=== PATIENT | male | born 1975 | race Hispanic/Latino ===

== ENCOUNTER 2023-01-10 10:28 | Inpatient (IN) | payer BC, OTHER ==
[2023-01-10] VITALS (13 sets, daily range): BP systolic 120–139; BP diastolic 68–88; PULSE 60–95; RESP 16–21; O2SAT 97–98
[~2023-01-10] VITALS: Ht 157.5 cm; Wt 66.1 kg
[~2023-01-10 10:28] MED LIST: ASPI-1197 PO; ATOR20TA65 PO; ATOR40TA71 PO; METO-391 PO; NITR0.4T SL; TICA90TA
[2023-01-10] MEDS ORDERED: LISI10TA24 PO (13:11)
[2023-01-10] MEDS ORDERED: METF-444 PO (13:11)
[2023-01-10] MEDS: NITROGLYCERIN 0.4 MG SL TAB SL PRN (13:40)
[2023-01-10 13:47] LABS: BASOPHILS # (AUTO) 0.03 K/uL (0.00-0.20); BASOPHILS % (AUTO) 0.4 % (0.0-5.0); EOSINOPHILS # (AUTO) 0.18 K/uL (0.00-0.70); EOSINOPHILS % (AUTO) 2.2 % (0.0-8.0); HEMATOCRIT 44.5 % (42-54); IMMATURE GRANULOCYTE ABSOLUTE 0.01 K/uL (0-1); LYMPHOCYTES # (AUTO) 2.2 K/uL (1.0-4.8); LYMPHOCYTES % (AUTO) 27.4 % (21.0-51.0); MEAN CORPUSCULAR HEMOGLOBIN 31.3 pg (27.0-33.0); MEAN CORPUSCULAR HGB CONC 34.4 g/dL (32.0-36.0); MONOCYTES # (AUTO) 0.5 K/uL (0.1-1.0); MONOCYTES % (AUTO) 6.6 % (3.0-13.0); NEUTROPHILS # (AUTO) 5.2 K/uL (1.8-7.7); NEUTROPHILS % (AUTO) 63.3 % (40.0-77.0); PLATELET COUNT (AUTO) 268 K/uL (130-400); RED BLOOD CELL COUNT(AUTO) 4.89 MIL/uL (4.50-6.20); RED CELL DISTRIBUTION WIDTH 11.8 % (11.0-15.5); WHITE BLOOD COUNT (AUTO) 8.1 K/uL (4.8-10.8)
[2023-01-10 14:00] LABS: HEMOGLOBIN A1C 9.8 % (4.0-6.0)
[2023-01-10] MEDS ORDERED: CLOPIDOGREL 75MG TAB PO ONE (14:00)
[2023-01-10] MEDS ORDERED: ASPIRIN 325MG TAB PO ONE (14:00)
[2023-01-10 14:12] LABS: INR 0.94 (0.85-1.15); PROTHROMBIN TIME 10.9 SEC (9.6-11.6)
[2023-01-10 14:14] LABS: PARTIAL THROMBOPLASTIN TIME 57.2 SEC (26.3-35.5)
[2023-01-10 14:16] LABS: ALBUMIN 3.3 g/dL (3.5-5.0); BILIRUBIN,TOTAL 0.6 mg/dL (0.2-1.0); CREATININE 0.9 mg/dL (0.5-1.5); POTASSIUM 3.8 mmol/L (3.5-5.1); THYROID STIMULATING HORMONE 2.22 uIU/mL (0.36-3.74); TOTAL PROTEIN, SERUM 6.4 g/dL (6.0-8.3)
[2023-01-10] MEDS: INSULIN HUMULIN R 100 UNIT/ML 3ML SQ SCH ×2 (16:30→21:00)
[2023-01-10] MEDS ORDERED: MIDAZOLAM HCL 1 MG/ML 2ML VIAL ONE ×2 (16:58→18:15)
[2023-01-10] MEDS ORDERED: LIDOCAINE HCL 400MG/20ML VIAL ONE (16:58)
[2023-01-10] MEDS ORDERED: FENTANYL CITRATE PF 50 MCG/1 ML 2ML VIAL ONE (16:58)
[2023-01-10] MEDS ORDERED: HEPARIN 1,000 UNIT VIAL ONE (16:58)
[2023-01-10] MEDS ORDERED: IOHEXOL 350 MG/ML 100ML INFUS..BTL IV ONE (16:59)
[2023-01-10] MEDS ORDERED: IOHEXOL-350 50ML VIAL IV ONE ×2 (16:59→18:28)
[2023-01-10] MEDS ORDERED: BIVALIRUDIN 250 MG/VIAL IV ONE (18:07)
[2023-01-10] MEDS ORDERED: 0.9%NACL 1000ML 1,000 ML IV SCH (19:00)
[2023-01-10] MEDS: FAMOTIDINE 20MG TAB PO SCH (22:54)
[2023-01-10] MEDS ORDERED: ONDANSETRON 4MG INJ IV PRN (23:30)
[2023-01-10] MEDS ORDERED: MORPHINE 2 MG SYG IV PRN (23:30)
[2023-01-10] MEDS ORDERED: ACETAMINOPHEN 325 MG TAB PO PRN (23:30)
[2023-01-10] MEDS: ACETAMINOPHEN 325 MG TAB PO PRN (23:58)
[2023-01-11] VITALS (11 sets, daily range): BP systolic 113–132; BP diastolic 75–89; PULSE 54–78; RESP 14–20; O2SAT 98–99
[2023-01-11 04:08] LABS: BASOPHILS # (AUTO) 0.02 K/uL (0.00-0.20); BASOPHILS % (AUTO) 0.3 % (0.0-5.0); EOSINOPHILS % (AUTO) 1.4 % (0.0-8.0); HEMATOCRIT 44.4 % (42-54); IMMATURE GRANULOCYTE ABSOLUTE 0.02 K/uL (0-1); LYMPHOCYTES # (AUTO) 2.3 K/uL (1.0-4.8); LYMPHOCYTES % (AUTO) 32.5 % (21.0-51.0); MEAN CORPUSCULAR HEMOGLOBIN 31.1 pg (27.0-33.0); MEAN CORPUSCULAR HGB CONC 33.6 g/dL (32.0-36.0); MEAN CORPUSCULAR VOLUME 92.7 fL (79-99); MONOCYTES # (AUTO) 0.6 K/uL (0.1-1.0); MONOCYTES % (AUTO) 8.1 % (3.0-13.0); NEUTROPHILS # (AUTO) 4.1 K/uL (1.8-7.7); NEUTROPHILS % (AUTO) 57.4 % (40.0-77.0); PLATELET COUNT (AUTO) 253 K/uL (130-400); RED BLOOD CELL COUNT(AUTO) 4.79 MIL/uL (4.50-6.20); RED CELL DISTRIBUTION WIDTH 11.7 % (11.0-15.5); WHITE BLOOD COUNT (AUTO) 7.2 K/uL (4.8-10.8)
[2023-01-11 04:20] LABS: ALBUMIN 3.2 g/dL (3.5-5.0); BILIRUBIN,TOTAL 0.7 mg/dL (0.2-1.0); POTASSIUM 3.7 mmol/L (3.5-5.1); TOTAL PROTEIN, SERUM 6.4 g/dL (6.0-8.3)
[2023-01-11 04:35] LABS: ABG BASE EXCESS -0.2 mmol/L (-2.0-3.0); ABG HCO3 24.8 mmol/L (21.0-28.0); ABG OXYGEN SATURATION 92.7 % (95.0-99.0); ABG PCO2 42 mmHg (35-48); ABG PH 7.392 (7.35-7.450); PO2, ARTERIAL BG 65.2 mmHg (83.0-108.0); VENT MODE, BG ROOMAIR (ROOM AIR)
[2023-01-11] MEDS ORDERED: POTASSIUM CHLORIDE 10% ELIXIR 20 MEQ/15 ML UDCUP PO PRN (06:00)
[2023-01-11] MEDS ORDERED: POTASSIUM CHLORIDE 20MEQ/100ML 100 ML IV PRN (06:00)
[2023-01-11] MEDS: KCL 20 MEQ ERTAB PO PRN ×2 (06:13→09:46)
[2023-01-11] MEDS: INSULIN HUMULIN R 100 UNIT/ML 3ML SQ SCH ×4 (06:14→21:20)
[2023-01-11 06:40] LABS: INR 0.95 (0.85-1.15); PROTHROMBIN TIME 11.1 SEC (9.6-11.6)
[2023-01-11 06:41] LABS: PARTIAL THROMBOPLASTIN TIME 28.5 SEC (26.3-35.5)
[2023-01-11] MEDS: ASPIRIN 81MG CHEW TAB PO SCH (09:03)
[2023-01-11] MEDS: LISINOPRIL 2.5 MG TABLET PO SCH (09:03)
[2023-01-11] MEDS: FAMOTIDINE 20MG TAB PO SCH ×2 (09:03→21:15)
[2023-01-11] MEDS: MAGNESIUM 2GM PREMIX 50ML 50 ML IV SCH (09:04)
[2023-01-11] MEDS: NITROGLYCERIN 1GM OINT 1 INCH/1GM TD SCH ×3 (09:04→21:16)
[2023-01-11] MEDS: METOPROLOL TARTRATE 25 MG TAB PO SCH ×3 (09:45→21:15)
[2023-01-11 11:45] LABS: HEMOGLOBIN A1C 9.8 % (4.0-6.0)
[2023-01-11 11:51] LABS: CHOLESTEROL 174 mg/dL (<200); HDL CHOLESTEROL 44 mg/dL (29-71); LDL DIRECT 117 mg/dL (0-99); TRIGLYCERIDES 80 mg/dL (30-200)
[2023-01-11] MEDS: NITROGLYCERIN 0.4 MG SL TAB SL PRN ×2 (14:11→14:19)
[2023-01-11] MEDS ORDERED: METOPROLOL TARTRATE 25 MG TAB PO ONE (15:00)
[2023-01-11] MEDS ORDERED: HEPARIN 5,000 UNIT VIAL SQ STA (15:04)
[2023-01-11] MEDS ORDERED: HEPARIN 5,000 UNIT VIAL IV PRN (15:30)
[2023-01-11] MEDS: HEPARIN 25,000 UNITS/250ML D5W 250 ML IV SCH ×2 (15:49→21:30)
[2023-01-11] MEDS: INSULIN GLARGINE 100 UNITS/ML 10 ML VIAL SQ SCH (21:20)
[2023-01-12] VITALS (8 sets, daily range): BP systolic 106–125; BP diastolic 70–82; PULSE 56–64; RESP 18–20; O2SAT 96–100
[2023-01-12] MEDS: HEPARIN 25,000 UNITS/250ML D5W 250 ML IV SCH ×4 (03:30→21:30)
[2023-01-12 04:22] LABS: BASOPHILS # (AUTO) 0.03 K/uL (0.00-0.20); BASOPHILS % (AUTO) 0.4 % (0.0-5.0); EOSINOPHILS # (AUTO) 0.18 K/uL (0.00-0.70); EOSINOPHILS % (AUTO) 2.2 % (0.0-8.0); HEMATOCRIT 42.2 % (42-54); IMMATURE GRANULOCYTE ABSOLUTE 0.04 K/uL (0-1); LYMPHOCYTES # (AUTO) 2.7 K/uL (1.0-4.8); LYMPHOCYTES % (AUTO) 33.1 % (21.0-51.0); MEAN CORPUSCULAR HEMOGLOBIN 31.1 pg (27.0-33.0); MEAN CORPUSCULAR HGB CONC 33.2 g/dL (32.0-36.0); MEAN CORPUSCULAR VOLUME 93.8 fL (79-99); MONOCYTES # (AUTO) 0.7 K/uL (0.1-1.0); MONOCYTES % (AUTO) 8.4 % (3.0-13.0); NEUTROPHILS # (AUTO) 4.6 K/uL (1.8-7.7); NEUTROPHILS % (AUTO) 55.4 % (40.0-77.0); PLATELET COUNT (AUTO) 249 K/uL (130-400); RED CELL DISTRIBUTION WIDTH 11.7 % (11.0-15.5); WHITE BLOOD COUNT (AUTO) 8.3 K/uL (4.8-10.8)
[2023-01-12 04:46] LABS: BILIRUBIN,TOTAL 0.5 mg/dL (0.2-1.0); POTASSIUM 3.6 mmol/L (3.5-5.1); TOTAL PROTEIN, SERUM 5.9 g/dL (6.0-8.3)
[2023-01-12] MEDS: KCL 20 MEQ ERTAB PO PRN ×2 (05:58→10:12)
[2023-01-12] MEDS: INSULIN HUMULIN R 100 UNIT/ML 3ML SQ SCH ×4 (05:59→20:24)
[2023-01-12] MEDS: FAMOTIDINE 20MG TAB PO SCH ×2 (08:27→20:15)
[2023-01-12] MEDS: LISINOPRIL 2.5 MG TABLET PO SCH (08:27)
[2023-01-12] MEDS: ATORVASTATIN 40 MG TABLET PO SCH (08:28)
[2023-01-12] MEDS: ASPIRIN 81MG CHEW TAB PO SCH (08:28)
[2023-01-12] MEDS: METOPROLOL TARTRATE 25 MG TAB PO SCH ×3 (08:29→20:15)
[2023-01-12] MEDS: NITROGLYCERIN 1GM OINT 1 INCH/1GM TD SCH ×3 (08:30→20:35)
[2023-01-12] MEDS: INSULIN GLARGINE 100 UNITS/ML 10 ML VIAL SQ SCH (20:34)
[2023-01-13] VITALS (7 sets, daily range): BP systolic 102–130; BP diastolic 60–94; PULSE 48–66; RESP 16–18; O2SAT 98–99
[2023-01-13] MEDS: HEPARIN 25,000 UNITS/250ML D5W 250 ML IV SCH ×3 (03:30→22:00)
[2023-01-13] MEDS: INSULIN HUMULIN R 100 UNIT/ML 3ML SQ SCH ×4 (06:09→21:00)
[2023-01-13 09:00] LABS: BASOPHILS # (AUTO) 0.02 K/uL (0.00-0.20); BASOPHILS % (AUTO) 0.2 % (0.0-5.0); EOSINOPHILS # (AUTO) 0.11 K/uL (0.00-0.70); EOSINOPHILS % (AUTO) 1.3 % (0.0-8.0); HEMATOCRIT 44.3 % (42-54); IMMATURE GRANULOCYTE ABSOLUTE 0.03 K/uL (0-1); LYMPHOCYTES # (AUTO) 1.8 K/uL (1.0-4.8); MEAN CORPUSCULAR HEMOGLOBIN 31.2 pg (27.0-33.0); MEAN CORPUSCULAR HGB CONC 33.6 g/dL (32.0-36.0); MEAN CORPUSCULAR VOLUME 92.9 fL (79-99); MONOCYTES # (AUTO) 0.7 K/uL (0.1-1.0); MONOCYTES % (AUTO) 7.9 % (3.0-13.0); NEUTROPHILS # (AUTO) 5.7 K/uL (1.8-7.7); NEUTROPHILS % (AUTO) 68.2 % (40.0-77.0); PLATELET COUNT (AUTO) 269 K/uL (130-400); RED BLOOD CELL COUNT(AUTO) 4.77 MIL/uL (4.50-6.20); RED CELL DISTRIBUTION WIDTH 11.9 % (11.0-15.5); WHITE BLOOD COUNT (AUTO) 8.3 K/uL (4.8-10.8)
[2023-01-13 09:19] LABS: MAGNESIUM 1.8 mg/dL (1.80-2.40); POTASSIUM 3.7 mmol/L (3.5-5.1)
[2023-01-13] MEDS: ATORVASTATIN 40 MG TABLET PO SCH (09:34)
[2023-01-13] MEDS: LISINOPRIL 2.5 MG TABLET PO SCH (09:35)
[2023-01-13] MEDS: FAMOTIDINE 20MG TAB PO SCH ×2 (09:35→21:57)
[2023-01-13] MEDS: METOPROLOL TARTRATE 25 MG TAB PO SCH ×2 (09:35→22:01)
[2023-01-13] MEDS: ASPIRIN 81MG CHEW TAB PO SCH (09:35)
[2023-01-13] MEDS: NITROGLYCERIN 1GM OINT 1 INCH/1GM TD SCH ×3 (09:36→22:07)
[2023-01-13] MEDS: CEFAZOLIN SODIUM 2 GM VIAL IVPB SCH (10:00)
[2023-01-13] MEDS: MAGNESIUM 2GM PREMIX 50ML 50 ML IV SCH (12:58)
[2023-01-13] MEDS: KCL 20 MEQ ERTAB PO PRN ×2 (17:23→19:29)
[2023-01-13] MEDS: INSULIN GLARGINE 100 UNITS/ML 10 ML VIAL SQ SCH (21:58)
[2023-01-14] VITALS (43 sets, daily range): BP systolic 100–153; BP diastolic 56–96; PULSE 45–106; RESP 10–22; TEMP 97.1–100.3; O2SAT 95–100
[2023-01-14] MEDS: HEPARIN 25,000 UNITS/250ML D5W 250 ML IV SCH ×2 (03:28→09:30)
[2023-01-14 04:04] LABS: HEMATOCRIT 44.6 % (42-54); MEAN CORPUSCULAR HEMOGLOBIN 31.3 pg (27.0-33.0); MEAN CORPUSCULAR HGB CONC 33.9 g/dL (32.0-36.0); MEAN CORPUSCULAR VOLUME 92.5 fL (79-99); RED BLOOD CELL COUNT(AUTO) 4.82 MIL/uL (4.50-6.20); RED CELL DISTRIBUTION WIDTH 11.9 % (11.0-15.5); WHITE BLOOD COUNT (AUTO) 8.5 K/uL (4.8-10.8)
[2023-01-14 04:06] LABS: CREATININE 1.1 mg/dL (0.5-1.5); POTASSIUM 4.1 mmol/L (3.5-5.1)
[2023-01-14 04:16] LABS: ALBUMIN 3.3 g/dL (3.5-5.0); BILIRUBIN,TOTAL 0.5 mg/dL (0.2-1.0); TOTAL PROTEIN, SERUM 6.6 g/dL (6.0-8.3)
[2023-01-14 04:19] LABS: INR 0.94 (0.85-1.15)
[2023-01-14 04:21] LABS: PARTIAL THROMBOPLASTIN TIME 66.6 SEC (26.3-35.5)
[2023-01-14] MEDS: INSULIN HUMULIN R 100 UNIT/ML 3ML SQ SCH ×2 (06:40→11:30)
[2023-01-14] MEDS: METOPROLOL TARTRATE 25 MG TAB PO SCH (08:24)
[2023-01-14] MEDS: ATORVASTATIN 40 MG TABLET PO SCH (08:25)
[2023-01-14] MEDS: FAMOTIDINE 20MG TAB PO SCH (08:25)
[2023-01-14] MEDS: NITROGLYCERIN 1GM OINT 1 INCH/1GM TD SCH (09:00)
[2023-01-14] MEDS: ASPIRIN 81MG CHEW TAB PO SCH (09:00)
[2023-01-14] MEDS: LISINOPRIL 2.5 MG TABLET PO SCH (09:00)
[2023-01-14] MEDS ORDERED: NOREPINEPHRINE BITARTRATE 8 MG in DEXTROSE 5%-WATER 250 ML IV PRN ×2 (09:30→12:30)
[2023-01-14] MEDS ORDERED: EPINEPHRINE PF 1MG (1:1,000) 10 MG in 0.9% NACL 250ML 240 ML IV PRN ×2 (09:30→12:30)
[2023-01-14] MEDS ORDERED: AMINOCAPROIC ACID 5,000MG VIAL 15,000 MG in 0.9% NACL 500ML IV.SOLN 420 ML IV PRN (09:30)
[2023-01-14] MEDS: MAGNESIUM 2GM PREMIX 50ML 50 ML IV SCH (10:02)
[2023-01-14] MEDS ORDERED: CEFAZOLIN SODIUM 1 GM VIAL ONE (10:51)
[2023-01-14] MEDS ORDERED: PAPAVERINE HCL 30 MG/ML 2ML VIAL ONE (10:51)
[2023-01-14] MEDS ORDERED: NITROGLYCERIN 50MG/D5W 250ML 1 BOT ONE (11:04)
[2023-01-14] MEDS ORDERED: SODIUM BICARB 50MEQ 50ML VIAL 150 ML ONE ×2 (11:29→19:31)
[2023-01-14] MEDS ORDERED: AMINOCAPROIC ACID 5,000MG VIAL ONE (11:29)
[2023-01-14] MEDS ORDERED: ESMOLOL HCL 10 MG/ML 10 ML VIAL ONE (11:29)
[2023-01-14] MEDS ORDERED: HEPARIN 10,000 UNIT/10ML (1,000 UNIT/ML) VIAL ONE ×2 (11:29→15:50)
[2023-01-14] MEDS ORDERED: PROTAMINE SULFATE 10 MG/ML 25ML VIAL IV ONE (11:29)
[2023-01-14] MEDS ORDERED: LIDOCAINE PF 100MG/5ML (2%) SYRINGE 5ML ONE (11:29)
[2023-01-14] MEDS ORDERED: NOREPINEPHRINE BITARTRATE 1 MG/1 ML ML IV ONE (11:29)
[2023-01-14] MEDS ORDERED: EPINEPHRINE PF 1MG (1:1,000) 1 MG/ML AMP ONE (11:29)
[2023-01-14] MEDS ORDERED: PROPOFOL 10 MG/ML 20ML VIAL IV ONE (11:30)
[2023-01-14] MEDS ORDERED: FENTANYL CITRATE PF 50 MCG/1 ML 20ML VIAL IJ ONE (11:30)
[2023-01-14] MEDS ORDERED: ROCURONIUM 10MG/1ML SYR 10 MG/ML ML ONE (11:30)
[2023-01-14] MEDS ORDERED: MIDAZOLAM HCL 1 MG/ML 2ML VIAL ONE (11:30)
[2023-01-14] MEDS ORDERED: KETAMINE 50MG/ML SYRINGE 50 MG/ML DISP.SYRIN ONE ×2 (11:31→14:35)
[2023-01-14] MEDS: CEFAZOLIN SODIUM 2 GM VIAL IVPB SCH ×2 (12:00→17:43)
[2023-01-14] MEDS ORDERED: MAGNESIUM HYDROXIDE 30 ML/UDCUP PO PRN (12:00)
[2023-01-14] MEDS ORDERED: LACTULOSE 20 GM/30 ML UDCUP PO PRN (12:00)
[2023-01-14] MEDS ORDERED: 0.9% NACL 500ML IV.SOLN 500 ML IV SCH (12:30)
[2023-01-14] MEDS ORDERED: AMINOCAPROIC ACID 5,000MG VIAL 15,000 MG in 0.9% NACL 250ML 250 ML IV SCH (12:30)
[2023-01-14] MEDS ORDERED: PROPOFOL 1000 MG/100 ML 100 ML IV PRN (12:30)
[2023-01-14] MEDS ORDERED: ACETAMINOPHEN 325 MG TAB PO PRN (12:30)
[2023-01-14] MEDS ORDERED: 0.9%NACL 1000ML 1,000 ML IV SCH (12:30)
[2023-01-14] MEDS ORDERED: MORPHINE 2 MG SYG IV PRN (12:30)
[2023-01-14] MEDS ORDERED: DEXTROSE 50%-WATER 50 ML DISP.SYRIN IV PRN (12:30)
[2023-01-14] MEDS ORDERED: ALBUMIN (HUMAN) 5% 250 ML IV PRN (12:30)
[2023-01-14] MEDS ORDERED: ACETAMINOPHEN 650 MG SUPPOSITORY RC PRN (12:30)
[2023-01-14] MEDS ORDERED: GLUCAGON 1MG KIT 1 MG ML IM PRN (12:30)
[2023-01-14] MEDS ORDERED: 0.9%NACL 10ML VIAL IVP PRN (12:30)
[2023-01-14] MEDS ORDERED: ONDANSETRON 4MG INJ IV PRN (12:30)
[2023-01-14] MEDS ORDERED: POTASSIUM PHOS 15 mMOL+NS250ML 250 ML IV PRN (12:30)
[2023-01-14] MEDS ORDERED: NITROGLYCERIN 50MG/D5W 250ML 250 BOT IV SCH (12:30)
[2023-01-14] MEDS ORDERED: GLYCOPYRROLATE 1 MG/5 ML SYRINGE ONE (12:37)
[2023-01-14 12:38] LABS: ABG BASE EXCESS -3.2 mmol/L (-2.0-3.0); ABG HCO3 20.4 mmol/L (21.0-28.0); ABG OXYGEN SATURATION 99.5 % (95.0-99.0); ABG PCO2 33 mmHg (35-48); CARBON MONOXIDE 0.8; DEVICE COMMENT 1; HHb 0.5; PO2, ARTERIAL BG 326.6 mmHg (83.0-108.0)
[2023-01-14] MEDS ORDERED: PROTAMINE SULFATE 10 MG/ML 5 ML VIAL ONE ×2 (14:53→15:16)
[2023-01-14] MEDS ORDERED: ASPIRIN 81MG CHEW TAB NG ONE (15:00)
[2023-01-14 15:15] LABS: ABG HCO3 21.3 mmol/L (21.0-28.0); ABG PCO2 40 mmHg (35-48); ABG PH 7.343 (7.35-7.450); CARBON MONOXIDE 0.7; DEVICE COMMENT 3; PO2, ARTERIAL BG 205.8 mmHg (83.0-108.0)
[2023-01-14 15:53] LABS: ABG BASE EXCESS -1.2 mmol/L (-2.0-3.0); ABG HCO3 23.4 mmol/L (21.0-28.0); ABG OXYGEN SATURATION 99.2 % (95.0-99.0); ABG PCO2 39 mmHg (35-48); ABG PH 7.398 (7.35-7.450); CARBON MONOXIDE 0.8; HHb 0.8; PO2, ARTERIAL BG 305.3 mmHg (83.0-108.0); VENT MODE, BG SIMV PS 10 (ROOM AIR)
[2023-01-14 16:06] LABS: HEMATOCRIT 39.9 % (42-54); MEAN CORPUSCULAR HEMOGLOBIN 31.6 pg (27.0-33.0); MEAN CORPUSCULAR HGB CONC 34.6 g/dL (32.0-36.0); MEAN CORPUSCULAR VOLUME 91.3 fL (79-99); RED BLOOD CELL COUNT(AUTO) 4.37 MIL/uL (4.50-6.20); RED CELL DISTRIBUTION WIDTH 11.9 % (11.0-15.5); WHITE BLOOD COUNT (AUTO) 23.9 K/uL (4.8-10.8)
[2023-01-14] MEDS: SODIUM BICARB 50MEQ 50ML VIAL IV PRN ×5 (16:17→23:21)
[2023-01-14] MEDS: INSULIN REGULAR, HUMAN 3ML 100 UNIT in 0.9%NACL 100ML 99 ML IV SCH ×2 (16:21)
[2023-01-14 16:22] LABS: INR 1.08 (0.85-1.15); PROTHROMBIN TIME 12.5 SEC (9.6-11.6)
[2023-01-14] MEDS: TRAMADOL HCL 50 MG TABLET PO PRN (16:23)
[2023-01-14 16:26] LABS: CREATININE 0.9 mg/dL (0.5-1.5); MAGNESIUM 1.6 mg/dL (1.80-2.40); PHOSPHORUS 4.9 mg/dL (2.5-4.9); POTASSIUM 4.1 mmol/L (3.5-5.1)
[2023-01-14] MEDS: MORPHINE 2 MG SYG IV PRN ×2 (16:32→18:39)
[2023-01-14] MEDS: MAGNESIUM 2GM PREMIX 50ML 50 ML IV PRN (16:47)
[2023-01-14 17:00] LABS: ABG BASE EXCESS -4.5 mmol/L (-2.0-3.0); ABG OXYGEN SATURATION 98.9 % (95.0-99.0); ABG PCO2 40 mmHg (35-48); ABG PH 7.337 (7.35-7.450); HHb 1.1; PO2, ARTERIAL BG 174.1 mmHg (83.0-108.0); VENT MODE, BG SIMV PS 10 (ROOM AIR)
[2023-01-14 17:03] LABS: ABG OXYGEN SATURATION 70.4 % (95.0-99.0); BASE EXCESS,VENOUS BLOOD GAS -4.2 (-2.0-3.0); HCO3,VENOUS BLOOD GAS 22.4 (21.0-28.0); PCO2,VENOUS BLOOD GAS 46 (32-45); PH,VENOUS BLOOD GAS 7.302 (7.350-7.450); PO2,VENOUS BLOOD GAS 40.6 mmHg (35.0-45.0); VENT MODE, BG SIMV PSN10 (ROOM AIR)
[2023-01-14] MEDS: POTASSIUM CHLORIDE 20MEQ/100ML 100 ML IV PRN ×5 (17:43→23:20)
[2023-01-14 18:21] LABS: ABG BASE EXCESS 0.6 mmol/L (-2.0-3.0); ABG HCO3 25.3 mmol/L (21.0-28.0); ABG OXYGEN SATURATION 97.3 % (95.0-99.0); ABG PCO2 41 mmHg (35-48); CARBON MONOXIDE 1.2; HHb 2.7; PO2, ARTERIAL BG 95.7 mmHg (83.0-108.0)
[2023-01-14] MEDS: CALCIUM GLUC 1GM 1 GM in 0.9%NACL 50ML 50 ML IV PRN ×4 (18:22→21:27)
[2023-01-14 19:22] LABS: ABG BASE EXCESS -4.2 mmol/L (-2.0-3.0); ABG HCO3 20.7 mmol/L (21.0-28.0); ABG PCO2 37 mmHg (35-48); CARBON MONOXIDE 1.1; PO2, ARTERIAL BG 116.7 mmHg (83.0-108.0); VENT MODE, BG SIMV,PS10 (ROOM AIR)
[2023-01-14 20:19] LABS: ABG BASE EXCESS 0.9 mmol/L (-2.0-3.0); ABG HCO3 25.5 mmol/L (21.0-28.0); ABG OXYGEN SATURATION 96.2 % (95.0-99.0); ABG PCO2 41 mmHg (35-48); ABG PH 7.417 (7.35-7.450); CARBON MONOXIDE 0.9; HHb 3.8; PO2, ARTERIAL BG 82.8 mmHg (83.0-108.0); VENT MODE, BG SIMV,PS10 (ROOM AIR)
[2023-01-14 21:13] LABS: ABG BASE EXCESS 0.6 mmol/L (-2.0-3.0); ABG HCO3 25.2 mmol/L (21.0-28.0); ABG PCO2 40 mmHg (35-48); ABG PH 7.413 (7.35-7.450); CARBON MONOXIDE 1.4; HHb 3.9; PO2, ARTERIAL BG 78.5 mmHg (83.0-108.0); VENT MODE, BG SIMV (ROOM AIR)
[2023-01-14] MEDS ORDERED: CALCIUM GLUC 1GM/10ML VIAL ONE (21:21)
[2023-01-14] MEDS: FAMOTIDINE 20MG VIAL IV SCH (21:26)
[2023-01-14] MEDS: DOCUSATE SODIUM 100 MG CAP PO SCH (21:26)
[2023-01-14 22:16] LABS: ABG BASE EXCESS -0.5 mmol/L (-2.0-3.0); ABG HCO3 24.1 mmol/L (21.0-28.0); ABG OXYGEN SATURATION 95.9 % (95.0-99.0); ABG PCO2 40 mmHg (35-48); ABG PH 7.403 (7.35-7.450); CARBON MONOXIDE 0.9; PO2, ARTERIAL BG 82.1 mmHg (83.0-108.0); VENT MODE, BG SIMV (ROOM AIR)
[2023-01-14 23:14] LABS: ABG HCO3 22.1 mmol/L (21.0-28.0); ABG OXYGEN SATURATION 93.7 % (95.0-99.0); ABG PCO2 36 mmHg (35-48); ABG PH 7.407 (7.35-7.450); HHb 6.2; PO2, ARTERIAL BG 69.3 mmHg (83.0-108.0); VENT MODE, BG SIMV,PS10 (ROOM AIR)
[2023-01-15] VITALS (77 sets, daily range): BP systolic 111–163; BP diastolic 58–107; PULSE 82–107; RESP 10–47; TEMP 99.5–100.3; O2SAT 94–99
[2023-01-15 00:29] LABS: ABG BASE EXCESS 1.7 mmol/L (-2.0-3.0); ABG HCO3 25.5 mmol/L (21.0-28.0); ABG OXYGEN SATURATION 94.8 % (95.0-99.0); ABG PCO2 38 mmHg (35-48); CARBON MONOXIDE 0.9; HHb 5.1; PO2, ARTERIAL BG 71.1 mmHg (83.0-108.0); VENT MODE, BG SIMV (ROOM AIR)
[2023-01-15] MEDS ORDERED: CALCIUM GLUC 1GM/10ML VIAL ONE (00:33)
[2023-01-15] MEDS: POTASSIUM CHLORIDE 20MEQ/100ML 100 ML IV PRN ×4 (00:34→13:50)
[2023-01-15] MEDS: CALCIUM GLUC 1GM 1 GM in 0.9%NACL 50ML 50 ML IV PRN ×2 (00:35→13:55)
[2023-01-15] MEDS: CEFAZOLIN SODIUM 2 GM VIAL IVPB SCH ×2 (00:58→09:01)
[2023-01-15 01:18] LABS: ABG BASE EXCESS 0.1 mmol/L (-2.0-3.0); ABG OXYGEN SATURATION 94.4 % (95.0-99.0); ABG PCO2 37 mmHg (35-48); ABG PH 7.433 (7.35-7.450); CARBON MONOXIDE 0.6; HHb 5.5; PO2, ARTERIAL BG 70.6 mmHg (83.0-108.0); VENT MODE, BG SIMV,PS10 (ROOM AIR)
[2023-01-15 02:20] LABS: ABG BASE EXCESS -1.3 mmol/L (-2.0-3.0); ABG OXYGEN SATURATION 92.9 % (95.0-99.0); ABG PCO2 38 mmHg (35-48); ABG PH 7.403 (7.35-7.450); CARBON MONOXIDE 0.7; PO2, ARTERIAL BG 66.5 mmHg (83.0-108.0)
[2023-01-15 03:42] LABS: ABG BASE EXCESS 3.2 mmol/L (-2.0-3.0); ABG HCO3 27.9 mmol/L (21.0-28.0); ABG OXYGEN SATURATION 93.2 % (95.0-99.0); ABG PCO2 43 mmHg (35-48); ABG PH 7.431 (7.35-7.450); CARBON MONOXIDE 0.9; HHb 6.7; PO2, ARTERIAL BG 64.7 mmHg (83.0-108.0)
[2023-01-15 04:52] LABS: ABG BASE EXCESS 3.3 mmol/L (-2.0-3.0); ABG HCO3 27.8 mmol/L (21.0-28.0); ABG PCO2 42 mmHg (35-48); CARBON MONOXIDE 0.7; PO2, ARTERIAL BG 72.2 mmHg (83.0-108.0)
[2023-01-15 05:22] LABS: HEMATOCRIT 38.4 % (42-54); MEAN CORPUSCULAR HEMOGLOBIN 31.4 pg (27.0-33.0); MEAN CORPUSCULAR HGB CONC 34.1 g/dL (32.0-36.0); MEAN CORPUSCULAR VOLUME 92.1 fL (79-99); RED BLOOD CELL COUNT(AUTO) 4.17 MIL/uL (4.50-6.20); RED CELL DISTRIBUTION WIDTH 12.3 % (11.0-15.5); WHITE BLOOD COUNT (AUTO) 16.6 K/uL (4.8-10.8)
[2023-01-15 05:35] LABS: INR 1.05 (0.85-1.15); PROTHROMBIN TIME 12.1 SEC (9.6-11.6)
[2023-01-15 05:36] LABS: PARTIAL THROMBOPLASTIN TIME 29.6 SEC (26.3-35.5)
[2023-01-15 05:37] LABS: MAGNESIUM 1.4 mg/dL (1.80-2.40); PHOSPHORUS 2.8 mg/dL (2.5-4.9); POTASSIUM 3.5 mmol/L (3.5-5.1)
[2023-01-15] MEDS: MAGNESIUM 2GM PREMIX 50ML 50 ML IV PRN (06:32)
[2023-01-15] MEDS ORDERED: FUROSEMIDE 20MG VIAL ONE (06:49)
[2023-01-15] MEDS: FUROSEMIDE 20MG VIAL IV SCH ×2 (06:50→20:23)
[2023-01-15 07:33] LABS: ABG BASE EXCESS 3.1 mmol/L (-2.0-3.0); ABG HCO3 27.4 mmol/L (21.0-28.0); ABG OXYGEN SATURATION 96.5 % (95.0-99.0); ABG PCO2 41 mmHg (35-48); ABG PH 7.447 (7.35-7.450); CARBON MONOXIDE 1.2; HHb 3.4; PO2, ARTERIAL BG 79.3 mmHg (83.0-108.0); VENT MODE, BG BIPAP 12-6 (ROOM AIR)
[2023-01-15] MEDS: DOCUSATE SODIUM 100 MG CAP PO SCH ×2 (08:16→20:23)
[2023-01-15] MEDS: ATORVASTATIN 40 MG TABLET PO SCH (08:17)
[2023-01-15] MEDS: FAMOTIDINE 20MG VIAL IV SCH ×2 (08:17→20:23)
[2023-01-15] MEDS: ASPIRIN 81MG CHEW TAB PO SCH (08:17)
[2023-01-15] MEDS: INSULIN REGULAR, HUMAN 3ML 100 UNIT in 0.9%NACL 100ML 99 ML IV SCH ×2 (08:18)
[2023-01-15 11:58] LABS: ABG BASE EXCESS 4.8 mmol/L (-2.0-3.0); ABG HCO3 29.2 mmol/L (21.0-28.0); ABG OXYGEN SATURATION 95.7 % (95.0-99.0); ABG PCO2 42 mmHg (35-48); ABG PH 7.458 (7.35-7.450); HHb 4.2; PO2, ARTERIAL BG 74.7 mmHg (83.0-108.0); VENT MODE, BG BIPAP 12-6 (ROOM AIR)
[2023-01-15] MEDS: TRAMADOL HCL 50 MG TABLET PO PRN (15:09)
[2023-01-16] VITALS (34 sets, daily range): BP systolic 105–159; BP diastolic 72–94; PULSE 88–108; RESP 17–30; O2SAT 95–97
[2023-01-16 04:42] LABS: HEMATOCRIT 38.9 % (42-54); MEAN CORPUSCULAR HEMOGLOBIN 31.4 pg (27.0-33.0); MEAN CORPUSCULAR HGB CONC 32.6 g/dL (32.0-36.0); RED BLOOD CELL COUNT(AUTO) 4.05 MIL/uL (4.50-6.20); RED CELL DISTRIBUTION WIDTH 12.5 % (11.0-15.5); WHITE BLOOD COUNT (AUTO) 18.8 K/uL (4.8-10.8)
[2023-01-16] MEDS: MAGNESIUM 2GM PREMIX 50ML 50 ML IV PRN (06:43)
[2023-01-16] MEDS: LISINOPRIL 2.5 MG TABLET PO SCH (08:29)
[2023-01-16] MEDS: DOCUSATE SODIUM 100 MG CAP PO SCH ×2 (08:29→20:20)
[2023-01-16] MEDS: FAMOTIDINE 20MG VIAL IV SCH ×2 (08:29→20:20)
[2023-01-16] MEDS: ATORVASTATIN 40 MG TABLET PO SCH (08:29)
[2023-01-16] MEDS: ASPIRIN 81MG CHEW TAB PO SCH (08:30)
[2023-01-16] MEDS: FUROSEMIDE 20 MG TABLET PO SCH ×2 (08:31→16:52)
[2023-01-16] MEDS ORDERED: METOPROLOL TARTRATE 25 MG TAB PO SCH (09:00)
[2023-01-16] MEDS ORDERED: METOPROLOL TARTRATE 25 MG TAB PO ONE (10:30)
[2023-01-16] MEDS: INSULIN HUMULIN R 100 UNIT/ML 3ML SQ SCH ×3 (11:30→20:23)
[2023-01-16] MEDS: METOPROLOL TARTRATE 25 MG TAB PO SCH (20:20)
[2023-01-17] VITALS (9 sets, daily range): BP systolic 106–130; BP diastolic 65–81; PULSE 82–92; RESP 18–20; O2SAT 91–95
[2023-01-17 05:15] LABS: HEMATOCRIT 34.5 % (42-54); MEAN CORPUSCULAR HEMOGLOBIN 31.2 pg (27.0-33.0); MEAN CORPUSCULAR HGB CONC 32.5 g/dL (32.0-36.0); MEAN CORPUSCULAR VOLUME 96.1 fL (79-99); RED BLOOD CELL COUNT(AUTO) 3.59 MIL/uL (4.50-6.20)
[2023-01-17 05:32] LABS: POTASSIUM 3.5 mmol/L (3.5-5.1)
[2023-01-17] MEDS: INSULIN HUMULIN R 100 UNIT/ML 3ML SQ SCH ×4 (06:01→20:59)
[2023-01-17] MEDS ORDERED: KCL 20 MEQ ERTAB PO ONE (06:27)
[2023-01-17] MEDS: KCL 20 MEQ ERTAB PO PRN (06:30)
[2023-01-17] MEDS: ENOXAPARIN SODIUM 30 MG/0.3 ML SQ SCH (09:10)
[2023-01-17] MEDS: POTASSIUM CHLORIDE 10% ELIXIR 20 MEQ/15 ML UDCUP PO PRN (09:10)
[2023-01-17] MEDS: FUROSEMIDE 20 MG TABLET PO SCH ×2 (09:11→17:05)
[2023-01-17] MEDS: ASPIRIN 81MG CHEW TAB PO SCH (09:11)
[2023-01-17] MEDS: FAMOTIDINE 20MG VIAL IV SCH (09:11)
[2023-01-17] MEDS: METOPROLOL TARTRATE 25 MG TAB PO SCH ×2 (09:11→21:00)
[2023-01-17] MEDS: ATORVASTATIN 40 MG TABLET PO SCH (09:11)
[2023-01-17] MEDS: DOCUSATE SODIUM 100 MG CAP PO SCH ×2 (09:12→21:00)
[2023-01-17] MEDS: LISINOPRIL 2.5 MG TABLET PO SCH (09:12)
[2023-01-17] MEDS ORDERED: IOHEXOL-350 75 ML VIAL IV ONE (18:38)
[2023-01-17] MEDS: FAMOTIDINE 20MG TAB PO SCH (21:00)
[2023-01-18] VITALS (9 sets, daily range): BP systolic 113–124; BP diastolic 56–87; PULSE 72–90; RESP 18–22; O2SAT 92–97
[2023-01-18 04:03] LABS: HEMATOCRIT 33.9 % (42-54); MEAN CORPUSCULAR HEMOGLOBIN 31.6 pg (27.0-33.0); MEAN CORPUSCULAR HGB CONC 33.6 g/dL (32.0-36.0); MEAN CORPUSCULAR VOLUME 93.9 fL (79-99); RED BLOOD CELL COUNT(AUTO) 3.61 MIL/uL (4.50-6.20); RED CELL DISTRIBUTION WIDTH 11.7 % (11.0-15.5)
[2023-01-18 04:07] LABS: CREATININE 0.8 mg/dL (0.5-1.5); POTASSIUM 3.4 mmol/L (3.5-5.1)
[2023-01-18] MEDS: KCL 20 MEQ ERTAB PO PRN (04:36)
[2023-01-18] MEDS: POTASSIUM CHLORIDE 10% ELIXIR 20 MEQ/15 ML UDCUP PO PRN (04:36)
[2023-01-18] MEDS: INSULIN HUMULIN R 100 UNIT/ML 3ML SQ SCH ×4 (05:51→20:55)
[2023-01-18] MEDS: ENOXAPARIN SODIUM 30 MG/0.3 ML SQ SCH (09:01)
[2023-01-18] MEDS: FAMOTIDINE 20MG TAB PO SCH ×2 (09:02→20:53)
[2023-01-18] MEDS: LISINOPRIL 2.5 MG TABLET PO SCH (09:02)
[2023-01-18] MEDS: DOCUSATE SODIUM 100 MG CAP PO SCH ×2 (09:03→20:51)
[2023-01-18] MEDS: FUROSEMIDE 20 MG TABLET PO SCH ×2 (09:03→18:00)
[2023-01-18] MEDS: METOPROLOL TARTRATE 25 MG TAB PO SCH (09:03)
[2023-01-18] MEDS: ASPIRIN 81MG CHEW TAB PO SCH (09:04)
[2023-01-18] MEDS: SPIRONOLACTONE 25 MG TAB PO SCH (10:39)
[2023-01-18] MEDS: CLOPIDOGREL 75MG TAB PO SCH (10:39)
[2023-01-18] MEDS: ATORVASTATIN 40 MG TABLET PO SCH (10:40)
[2023-01-18] MEDS: TRAMADOL HCL 50 MG TABLET PO PRN (20:53)
[2023-01-18] MEDS: CARVEDILOL 6.25 MG TABLET PO SCH (20:53)
[2023-01-18] MEDS: INSULIN GLARGINE 100 UNITS/ML 10 ML VIAL SQ SCH (20:54)
[2023-01-19] VITALS (11 sets, daily range): BP systolic 99–120; BP diastolic 62–86; PULSE 69–91; RESP 16–20; O2SAT 94–99
[2023-01-19 03:41] LABS: BASOPHILS # (AUTO) 0.02 K/uL (0.00-0.20); BASOPHILS % (AUTO) 0.3 % (0.0-5.0); EOSINOPHILS # (AUTO) 0.14 K/uL (0.00-0.70); EOSINOPHILS % (AUTO) 1.9 % (0.0-8.0); HEMATOCRIT 33.4 % (42-54); IMMATURE GRANULOCYTE ABSOLUTE 0.04 K/uL (0-1); LYMPHOCYTES % (AUTO) 27.3 % (21.0-51.0); MEAN CORPUSCULAR HEMOGLOBIN 31.1 pg (27.0-33.0); MEAN CORPUSCULAR HGB CONC 33.2 g/dL (32.0-36.0); MEAN CORPUSCULAR VOLUME 93.6 fL (79-99); MONOCYTES # (AUTO) 1.1 K/uL (0.1-1.0); MONOCYTES % (AUTO) 15.4 % (3.0-13.0); NEUTROPHILS % (AUTO) 54.5 % (40.0-77.0); PLATELET COUNT (AUTO) 280 K/uL (130-400); RED BLOOD CELL COUNT(AUTO) 3.57 MIL/uL (4.50-6.20); RED CELL DISTRIBUTION WIDTH 11.6 % (11.0-15.5); WHITE BLOOD COUNT (AUTO) 7.3 K/uL (4.8-10.8)
[2023-01-19 03:57] LABS: CREATININE 0.9 mg/dL (0.5-1.5); MAGNESIUM 1.8 mg/dL (1.80-2.40); PHOSPHORUS 4.2 mg/dL (2.5-4.9); POTASSIUM 3.5 mmol/L (3.5-5.1)
[2023-01-19 04:30] LABS: WBC MORPHOLOGY CONSISTENT W/DIFF
[2023-01-19] MEDS: TRAMADOL HCL 50 MG TABLET PO PRN (04:57)
[2023-01-19] MEDS: INSULIN HUMULIN R 100 UNIT/ML 3ML SQ SCH ×4 (05:54→20:27)
[2023-01-19] MEDS: ATORVASTATIN 40 MG TABLET PO SCH (10:10)
[2023-01-19] MEDS: DOCUSATE SODIUM 100 MG CAP PO SCH ×2 (10:10→20:31)
[2023-01-19] MEDS: ENOXAPARIN SODIUM 30 MG/0.3 ML SQ SCH (10:10)
[2023-01-19] MEDS: SPIRONOLACTONE 25 MG TAB PO SCH (10:11)
[2023-01-19] MEDS: CARVEDILOL 6.25 MG TABLET PO SCH ×2 (10:11→20:31)
[2023-01-19] MEDS: CLOPIDOGREL 75MG TAB PO SCH (10:11)
[2023-01-19] MEDS: FAMOTIDINE 20MG TAB PO SCH ×2 (10:12→20:32)
[2023-01-19] MEDS: FUROSEMIDE 20 MG TABLET PO SCH ×2 (10:12→16:32)
[2023-01-19] MEDS: ASPIRIN 81MG CHEW TAB PO SCH (10:12)
[2023-01-19] MEDS ORDERED: 0.9%NACL 50ML IV SCH (10:30)
[2023-01-19] MEDS: KCL 20 MEQ ERTAB PO PRN ×2 (10:39→13:08)
[2023-01-19] MEDS: ZOSYN 3.375GM +NS 50ML IVPB SCH ×2 (10:40→18:10)
[2023-01-19] MEDS: MAGNESIUM 2GM PREMIX 50ML 50 ML IV PRN (10:40)
[2023-01-19] MEDS: SACUBITRIL/VALSARTAN 1 EACH TABLET PO SCH (20:32)
[2023-01-19] MEDS: INSULIN GLARGINE 100 UNITS/ML 10 ML VIAL SQ SCH (20:41)
[2023-01-20] MEDS: ZOSYN 3.375GM +NS 50ML IVPB SCH ×2 (01:28→11:10)
[2023-01-20 03:41] LABS: BASOPHILS # (AUTO) 0.04 K/uL (0.00-0.20); BASOPHILS % (AUTO) 0.5 % (0.0-5.0); EOSINOPHILS # (AUTO) 0.19 K/uL (0.00-0.70); EOSINOPHILS % (AUTO) 2.1 % (0.0-8.0); LYMPHOCYTES # (AUTO) 2.4 K/uL (1.0-4.8); LYMPHOCYTES % (AUTO) 27.3 % (21.0-51.0); MEAN CORPUSCULAR HEMOGLOBIN 31.1 pg (27.0-33.0); MEAN CORPUSCULAR HGB CONC 33.5 g/dL (32.0-36.0); MEAN CORPUSCULAR VOLUME 92.9 fL (79-99); MONOCYTES # (AUTO) 1.3 K/uL (0.1-1.0); MONOCYTES % (AUTO) 14.5 % (3.0-13.0); NEUTROPHILS # (AUTO) 4.8 K/uL (1.8-7.7); NEUTROPHILS % (AUTO) 54.5 % (40.0-77.0); PLATELET COUNT (AUTO) 338 K/uL (130-400); RED BLOOD CELL COUNT(AUTO) 3.66 MIL/uL (4.50-6.20); RED CELL DISTRIBUTION WIDTH 11.6 % (11.0-15.5); WHITE BLOOD COUNT (AUTO) 8.8 K/uL (4.8-10.8)
[2023-01-20 03:59] LABS: POTASSIUM 4.1 mmol/L (3.5-5.1)
[2023-01-20 04:08] VITALS: BP 102/60; PULSE 71; RESP 18
[2023-01-20] MEDS: INSULIN HUMULIN R 100 UNIT/ML 3ML SQ SCH ×3 (05:50→17:45)
[2023-01-20 07:34] VITALS: BP 122/82; PULSE 83; RESP 18
[2023-01-20 08:00] VITALS: O2SAT 95
[2023-01-20] MEDS: DOCUSATE SODIUM 100 MG CAP PO SCH (08:56)
[2023-01-20] MEDS: FUROSEMIDE 20 MG TABLET PO SCH ×2 (08:57→17:38)
[2023-01-20] MEDS: SACUBITRIL/VALSARTAN 1 EACH TABLET PO SCH (08:57)
[2023-01-20] MEDS: CARVEDILOL 6.25 MG TABLET PO SCH (08:57)
[2023-01-20] MEDS: FAMOTIDINE 20MG TAB PO SCH (08:57)
[2023-01-20] MEDS: ASPIRIN 81MG CHEW TAB PO SCH (08:58)
[2023-01-20] MEDS: ATORVASTATIN 40 MG TABLET PO SCH (08:58)
[2023-01-20] MEDS: ENOXAPARIN SODIUM 30 MG/0.3 ML SQ SCH (08:59)
[2023-01-20] MEDS: CLOPIDOGREL 75MG TAB PO SCH (08:59)
[2023-01-20] MEDS: SPIRONOLACTONE 25 MG TAB PO SCH (08:59)
[2023-01-20 11:08] VITALS: BP 104/71; PULSE 79; RESP 18
[2023-01-20] MEDS: ACETAMINOPHEN 325 MG TAB PO PRN (11:40)
[2023-01-20 16:15] VITALS: BP 110/72; PULSE 79; RESP 18
[2023-01-20] MEDS ORDERED: LEVO750T68 PO (16:32)
[2023-01-20] MEDS ORDERED: SPIR25TA6 PO (16:32)
[2023-01-20] MEDS ORDERED: ATOR40TA69 PO (16:32)
[2023-01-20] MEDS ORDERED: CARV6.2579 PO (16:32)
[2023-01-20] MEDS ORDERED: FURO20TA6 PO (16:32)
[2023-01-20] MEDS ORDERED: ASPI-1005 PO (16:32)
[2023-01-20] MEDS ORDERED: SACU1TAB PO (16:32)
[2023-01-20] MEDS ORDERED: CLOP-31 PO (16:32)
== END 2023-01-20 19:17 | disposition home or self-care (01) | DRG 233 ==
LOC: 2AH 12:20 → EEVIPCON 12:20 → 2CV 01-14 11:23 → 2AH 01-15 04:53 → 2CV 01-15 05:11 → 2BH 01-15 21:18 → 2AH 01-16 17:01
PROVIDERS: ADMIT Internal Medicine; ATTEND Internal Medicine
PROC: 4A023N7 Measurement of Cardiac Sampling and Pressure, Left Heart, Percutaneous Approach (ICD-10-PCS; principal; 2023-01-10)
PROC: B2111ZZ Fluoroscopy of Multiple Coronary Arteries using Low Osmolar Contrast (ICD-10-PCS; 2023-01-10)
PROC: B2151ZZ Fluoroscopy of Left Heart using Low Osmolar Contrast (ICD-10-PCS; 2023-01-10)
PROC: B41F1ZZ Fluoroscopy of Right Lower Extremity Arteries using Low Osmolar Contrast (ICD-10-PCS; 2023-01-10)
PROC: 021109W Bypass Coronary Artery, Two Arteries from Aorta with Autologous Venous Tissue, Open Approach (ICD-10-PCS; 2023-01-11)
PROC: 02100Z9 Bypass Coronary Artery, One Artery from Left Internal Mammary, Open Approach (ICD-10-PCS; 2023-01-14 12:34)
PROC: 06BQ4ZZ Excision of Left Saphenous Vein, Percutaneous Endoscopic Approach (ICD-10-PCS; 2023-01-14 12:34)
PROC: 0PH000Z Insertion of Rigid Plate Internal Fixation Device into Sternum, Open Approach (ICD-10-PCS; 2023-01-14 12:34)
DX: I25.10 Atherosclerotic heart disease of native coronary artery without angina pectoris (principal); I21.4 Non-ST elevation (NSTEMI) myocardial infarction; J95.1 Acute pulmonary insufficiency following thoracic surgery; I25.5 Ischemic cardiomyopathy; E78.00 Pure hypercholesterolemia, unspecified; E11.65 Type 2 diabetes mellitus with hyperglycemia; D72.829 Elevated white blood cell count, unspecified; I10 Essential (primary) hypertension; Z79.82 Long term (current) use of aspirin; Z79.84 Long term (current) use of oral hypoglycemic drugs; Z79.899 Other long term (current) drug therapy; Z95.5 Presence of coronary angioplasty implant and graft
CPT/HCPCS: 36415; 36600; 71045; 71260; 80048; 80053; 80061; 82306; 82330; 82435; 82803; 82947; 82948; 83036; 83605; 83735; 83880; 84100; 84132; 84295; 84443; 84484; 85018; 85025; 85027; 85347; 85610; 85730; 86850; 86900; 86901; 86923; 87641; 92610; 93005; 93306; 93312; 93356; 93458; 93571; 93880; 94002; 94003; 94010; 94150; 94660; 97039; 99156; 99157; A7048; C1760; C1887; C1894; G0378; J0171; J0583; J0610; J0690; J1644; J1650; J1815; J1940; J2001; J2250; J2270; J2405; J2440; J2543; J2704; J2720; J3010; J3475; J3480; J3490; J7030; J7040; J7120; P9045; Q9967; A4215; A4315; A4452; A4600; A4649; A4930; A6204; A6219; C1713; C1729; C1769; C1776

== ENCOUNTER 2023-01-29 14:43 | Inpatient (IN) | payer OTHER ==
[~2023-01-29] VITALS: Ht 162.6 cm; Wt 62.0 kg
[~2023-01-29 14:43] MED LIST changes: +ASPI-1005 PO; -ASPI-1197 PO; -ATOR20TA65 PO; +ATOR40TA69 PO; -ATOR40TA71 PO; +CARV6.2579 PO; +CLOP-31 PO; +FURO20TA6 PO; +LEVO750T68 PO; +METF-444 PO; -METO-391 PO; -NITR0.4T SL; +SACU1TAB PO; +SPIR25TA6 PO; -TICA90TA
[2023-01-29 15:26] LABS: BASOPHILS # (AUTO) 0.03 K/uL (0.00-0.20); BASOPHILS % (AUTO) 0.2 % (0.0-5.0); EOSINOPHILS % (AUTO) 1.5 % (0.0-8.0); HEMATOCRIT 37.8 % (42-54); IMMATURE GRANULOCYTE ABSOLUTE 0.06 K/uL (0-1); LYMPHOCYTES # (AUTO) 1.5 K/uL (1.0-4.8); LYMPHOCYTES % (AUTO) 11.6 % (21.0-51.0); MEAN CORPUSCULAR HEMOGLOBIN 31.1 pg (27.0-33.0); MEAN CORPUSCULAR HGB CONC 33.9 g/dL (32.0-36.0); MEAN CORPUSCULAR VOLUME 91.7 fL (79-99); MONOCYTES # (AUTO) 1.1 K/uL (0.1-1.0); MONOCYTES % (AUTO) 8.6 % (3.0-13.0); NEUTROPHILS # (AUTO) 10.3 K/uL (1.8-7.7); NEUTROPHILS % (AUTO) 77.6 % (40.0-77.0); PLATELET COUNT (AUTO) 521 K/uL (130-400); RED BLOOD CELL COUNT(AUTO) 4.12 MIL/uL (4.50-6.20); RED CELL DISTRIBUTION WIDTH 12.3 % (11.0-15.5); WHITE BLOOD COUNT (AUTO) 13.2 K/uL (4.8-10.8)
[2023-01-29 15:32] LABS: POTASSIUM 3.7 mmol/L (3.5-5.1)
[2023-01-29 15:46] LABS: ALBUMIN 2.9 g/dL (3.5-5.0); BILIRUBIN,TOTAL 0.4 mg/dL (0.2-1.0)
[2023-01-29 16:18] LABS: RAPID GROUP A STREP negative (NEGATIVE)
[2023-01-29 16:21] LABS: SARS-CoV-2, RNA, NAAT NEGATIVE SARS CoV-2 (NEGATIVE)
[2023-01-29 16:28] LABS: INFLUENZA TYPE A Negative For Type A (NEGATIVE); INFLUENZA TYPE B Negative For Type B (NEGATIVE)
[2023-01-29] MEDS ORDERED: DEXTROSE 50%-WATER 50 ML DISP.SYRIN IV PRN (20:30)
[2023-01-29] MEDS ORDERED: GLUCAGON 1MG KIT 1 MG ML IM PRN (20:30)
[2023-01-29] MEDS ORDERED: NITROGLYCERIN 0.4 MG SL TAB SL PRN (20:30)
[2023-01-29] MEDS ORDERED: ACETAMINOPHEN 325 MG TAB PO PRN (20:30)
[2023-01-29] MEDS ORDERED: ONDANSETRON 4MG INJ IV PRN (20:30)
[2023-01-29] MEDS ORDERED: POTASSIUM CHLORIDE 10% ELIXIR 20 MEQ/15 ML UDCUP PO PRN (20:30)
[2023-01-29] MEDS ORDERED: POTASSIUM CHLORIDE 20MEQ/100ML 100 ML IV PRN (20:30)
[2023-01-29 20:43] LABS: APPEARANCE,URINE CLEAR (CLEAR); BACTERIA,URINE RARE /HPF (None Seen); BILIRUBIN,URINE NEGATIVE (NEGATIVE); COLOR,URINE LIGHT-YELLOW (YELLOW); GLUCOSE, URINE (UA) >=1000 mg/dL (NEGATIVE); KETONES,URINE NEGATIVE (NEGATIVE); LEUKOCYTE ESTERASE ,URINE NEGATIVE Leu/uL (NEGATIVE); MUCUS,URINE RARE LPF (None Seen); NITRATE,URINE NEGATIVE (NEGATIVE); OCCULT BLOOD,URINE NEGATIVE (NEGATIVE); PH,URINE 6.5 (5.0-8.0); PROTEIN,URINE NEGATIVE (NEGATIVE); SQUAMOUS EPITHELIAL CELL,UR RARE /HPF (0-2); UROBILINOGEN,URINE 0.2 mg/dL (0.2-1.0)
[2023-01-29] MEDS: CEFTRIAXONE 1G VIAL IV SCH (20:58)
[2023-01-29] MEDS: FAMOTIDINE 20MG TAB PO SCH (20:58)
[2023-01-29] MEDS: CARVEDILOL 6.25 MG TABLET PO SCH (20:58)
[2023-01-29] MEDS: INSULIN HUMULIN R 100 UNIT/ML 3ML SQ SCH (20:58)
[2023-01-30] VITALS (7 sets, daily range): BP systolic 102–107; BP diastolic 69–77; PULSE 81–95; RESP 16–18; O2SAT 95–97
[2023-01-30] MEDS: INSULIN HUMULIN R 100 UNIT/ML 3ML SQ SCH ×4 (06:48→21:00)
[2023-01-30] MEDS: ATORVASTATIN 40 MG TABLET PO SCH (08:41)
[2023-01-30 08:42] LABS: BASOPHILS # (AUTO) 0.03 K/uL (0.00-0.20); BASOPHILS % (AUTO) 0.3 % (0.0-5.0); EOSINOPHILS # (AUTO) 0.17 K/uL (0.00-0.70); EOSINOPHILS % (AUTO) 1.6 % (0.0-8.0); IMMATURE GRANULOCYTE ABSOLUTE 0.05 K/uL (0-1); LYMPHOCYTES % (AUTO) 18.3 % (21.0-51.0); MEAN CORPUSCULAR HEMOGLOBIN 30.7 pg (27.0-33.0); MEAN CORPUSCULAR HGB CONC 33.2 g/dL (32.0-36.0); MEAN CORPUSCULAR VOLUME 92.7 fL (79-99); MONOCYTES # (AUTO) 1.4 K/uL (0.1-1.0); MONOCYTES % (AUTO) 12.5 % (3.0-13.0); NEUTROPHILS # (AUTO) 7.2 K/uL (1.8-7.7); NEUTROPHILS % (AUTO) 66.8 % (40.0-77.0); PLATELET COUNT (AUTO) 468 K/uL (130-400); RED CELL DISTRIBUTION WIDTH 12.4 % (11.0-15.5); WHITE BLOOD COUNT (AUTO) 10.8 K/uL (4.8-10.8)
[2023-01-30] MEDS: GABAPENTIN 100 MG CAPSULE PO SCH ×2 (08:42→21:10)
[2023-01-30] MEDS: CARVEDILOL 6.25 MG TABLET PO SCH ×2 (08:42→21:10)
[2023-01-30] MEDS: FAMOTIDINE 20MG TAB PO SCH ×2 (08:42→21:10)
[2023-01-30] MEDS: CLOPIDOGREL 75MG TAB PO SCH (08:42)
[2023-01-30] MEDS: ASPIRIN 81 MG EC TAB PO SCH (08:42)
[2023-01-30 08:49] LABS: HEMOGLOBIN A1C 9.3 % (4.0-6.0)
[2023-01-30 09:06] LABS: ALBUMIN 2.8 g/dL (3.5-5.0); BILIRUBIN,TOTAL 0.8 mg/dL (0.2-1.0); MAGNESIUM 1.7 mg/dL (1.80-2.40); POTASSIUM 4.1 mmol/L (3.5-5.1); THYROID STIMULATING HORMONE 1.86 uIU/mL (0.36-3.74); TOTAL PROTEIN, SERUM 6.9 g/dL (6.0-8.3); URIC ACID 3.4 mg/dL (2.6-7.2)
[2023-01-30 10:09] LABS: ERYTHROCYTE SEDIMENTATION RATE 41 MM/HR (0-15)
[2023-01-30] MEDS: ENOXAPARIN SODIUM 40 MG/0.4 ML SYRINGE SQ SCH (12:40)
[2023-01-30] MEDS: FUROSEMIDE 40MG VIAL IV SCH (18:40)
[2023-01-30] MEDS: MAGNESIUM 2GM PREMIX 50ML 50 ML IV PRN (18:41)
[2023-01-30] MEDS: CEFTRIAXONE 1G VIAL IV SCH (21:10)
[2023-01-31] VITALS (7 sets, daily range): BP systolic 100–106; BP diastolic 67–77; PULSE 86–94; RESP 16–20; O2SAT 92–94
[2023-01-31] MEDS: FUROSEMIDE 40MG VIAL IV SCH (05:08)
[2023-01-31] MEDS: INSULIN HUMULIN R 100 UNIT/ML 3ML SQ SCH ×4 (06:19→21:14)
[2023-01-31] MEDS: GABAPENTIN 100 MG CAPSULE PO SCH ×2 (09:00→21:12)
[2023-01-31] MEDS: FAMOTIDINE 20MG TAB PO SCH ×2 (09:59→21:13)
[2023-01-31] MEDS: ATORVASTATIN 40 MG TABLET PO SCH (09:59)
[2023-01-31] MEDS: CARVEDILOL 6.25 MG TABLET PO SCH ×2 (09:59→21:13)
[2023-01-31] MEDS: ENOXAPARIN SODIUM 40 MG/0.4 ML SYRINGE SQ SCH (09:59)
[2023-01-31] MEDS: ASPIRIN 81 MG EC TAB PO SCH (09:59)
[2023-01-31] MEDS: CLOPIDOGREL 75MG TAB PO SCH (10:00)
[2023-01-31] MEDS: FUROSEMIDE 20MG VIAL IV SCH ×2 (10:00→22:56)
[2023-01-31] MEDS: SPIRONOLACTONE 25 MG TAB PO SCH (10:04)
[2023-01-31] MEDS: CEFTRIAXONE 1G VIAL IV SCH (21:12)
[2023-01-31] MEDS: SACUBITRIL/VALSARTAN 1 EACH TABLET PO SCH (21:13)
[2023-02-01] VITALS (7 sets, daily range): BP systolic 88–107; BP diastolic 63–70; PULSE 78–86; RESP 17–20; O2SAT 96
[2023-02-01 05:23] LABS: BASOPHILS # (AUTO) 0.04 K/uL (0.00-0.20); BASOPHILS % (AUTO) 0.5 % (0.0-5.0); EOSINOPHILS # (AUTO) 0.25 K/uL (0.00-0.70); EOSINOPHILS % (AUTO) 3.4 % (0.0-8.0); HEMATOCRIT 36.3 % (42-54); IMMATURE GRANULOCYTE ABSOLUTE 0.02 K/uL (0-1); LYMPHOCYTES # (AUTO) 1.8 K/uL (1.0-4.8); LYMPHOCYTES % (AUTO) 23.9 % (21.0-51.0); MEAN CORPUSCULAR HEMOGLOBIN 30.9 pg (27.0-33.0); MEAN CORPUSCULAR HGB CONC 33.6 g/dL (32.0-36.0); MEAN CORPUSCULAR VOLUME 91.9 fL (79-99); MONOCYTES # (AUTO) 0.9 K/uL (0.1-1.0); MONOCYTES % (AUTO) 12.4 % (3.0-13.0); NEUTROPHILS # (AUTO) 4.4 K/uL (1.8-7.7); NEUTROPHILS % (AUTO) 59.5 % (40.0-77.0); PLATELET COUNT (AUTO) 425 K/uL (130-400); RED BLOOD CELL COUNT(AUTO) 3.95 MIL/uL (4.50-6.20); RED CELL DISTRIBUTION WIDTH 12.1 % (11.0-15.5); WHITE BLOOD COUNT (AUTO) 7.3 K/uL (4.8-10.8)
[2023-02-01 05:43] LABS: ALBUMIN 2.8 g/dL (3.5-5.0); B-TYPE NATRIURETIC PEPTIDE 38 pg/mL (0-100); BILIRUBIN,TOTAL 0.4 mg/dL (0.2-1.0); MAGNESIUM 1.9 mg/dL (1.80-2.40); PHOSPHORUS 4.9 mg/dL (2.5-4.9); POTASSIUM 3.5 mmol/L (3.5-5.1); TOTAL PROTEIN, SERUM 6.9 g/dL (6.0-8.3)
[2023-02-01] MEDS: INSULIN HUMULIN R 100 UNIT/ML 3ML SQ SCH ×4 (06:13→21:00)
[2023-02-01] MEDS: FAMOTIDINE 20MG TAB PO SCH ×2 (09:43→21:42)
[2023-02-01] MEDS: CLOPIDOGREL 75MG TAB PO SCH (09:44)
[2023-02-01] MEDS: ATORVASTATIN 40 MG TABLET PO SCH (09:44)
[2023-02-01] MEDS: CARVEDILOL 6.25 MG TABLET PO SCH ×2 (09:45→21:00)
[2023-02-01] MEDS: SPIRONOLACTONE 25 MG TAB PO SCH (09:46)
[2023-02-01] MEDS: ASPIRIN 81 MG EC TAB PO SCH (09:46)
[2023-02-01] MEDS: ENOXAPARIN SODIUM 40 MG/0.4 ML SYRINGE SQ SCH (09:46)
[2023-02-01] MEDS: GABAPENTIN 100 MG CAPSULE PO SCH ×2 (09:46→21:42)
[2023-02-01] MEDS: FUROSEMIDE 40 MG TABLET PO SCH (09:49)
[2023-02-01] MEDS: ISOSORBIDE MONO 30MG SR TAB PO SCH (09:49)
[2023-02-01] MEDS: MAGNESIUM 2GM PREMIX 50ML 50 ML IV PRN (12:30)
[2023-02-01] MEDS: KCL 20 MEQ ERTAB PO PRN ×2 (14:16→18:00)
[2023-02-01] MEDS ORDERED: FUROSEMIDE 20 MG TABLET PO SCH (18:00)
[2023-02-01] MEDS: ACETAMINOPHEN 325 MG TAB PO PRN (18:12)
[2023-02-01] MEDS: CEFTRIAXONE 1G VIAL IV SCH (21:41)
[2023-02-01] MEDS: SACUBITRIL/VALSARTAN 1 EACH TABLET PO SCH (21:42)
[2023-02-02] VITALS: BP 97/63; PULSE 82; RESP 18
[2023-02-02 04:00] VITALS: BP 101/66; PULSE 80; RESP 18
[2023-02-02 04:09] LABS: BASOPHILS # (AUTO) 0.02 K/uL (0.00-0.20); BASOPHILS % (AUTO) 0.3 % (0.0-5.0); EOSINOPHILS # (AUTO) 0.22 K/uL (0.00-0.70); EOSINOPHILS % (AUTO) 3.2 % (0.0-8.0); HEMATOCRIT 36.4 % (42-54); IMMATURE GRANULOCYTE ABSOLUTE 0.02 K/uL (0-1); LYMPHOCYTES # (AUTO) 1.8 K/uL (1.0-4.8); LYMPHOCYTES % (AUTO) 26.6 % (21.0-51.0); MEAN CORPUSCULAR HEMOGLOBIN 30.3 pg (27.0-33.0); MEAN CORPUSCULAR HGB CONC 32.7 g/dL (32.0-36.0); MEAN CORPUSCULAR VOLUME 92.6 fL (79-99); MONOCYTES # (AUTO) 0.6 K/uL (0.1-1.0); MONOCYTES % (AUTO) 9.5 % (3.0-13.0); NEUTROPHILS # (AUTO) 4.1 K/uL (1.8-7.7); NEUTROPHILS % (AUTO) 60.1 % (40.0-77.0); PLATELET COUNT (AUTO) 447 K/uL (130-400); RED BLOOD CELL COUNT(AUTO) 3.93 MIL/uL (4.50-6.20); RED CELL DISTRIBUTION WIDTH 11.9 % (11.0-15.5); WHITE BLOOD COUNT (AUTO) 6.8 K/uL (4.8-10.8)
[2023-02-02 04:23] LABS: ALBUMIN 2.8 g/dL (3.5-5.0); BILIRUBIN,TOTAL 0.4 mg/dL (0.2-1.0); CREATININE 0.9 mg/dL (0.5-1.5); POTASSIUM 3.9 mmol/L (3.5-5.1); TOTAL PROTEIN, SERUM 6.9 g/dL (6.0-8.3)
[2023-02-02] MEDS: INSULIN HUMULIN R 100 UNIT/ML 3ML SQ SCH ×2 (06:15→12:21)
[2023-02-02 08:00] VITALS: BP 96/63; PULSE 82; RESP 16; O2SAT 97
[2023-02-02] MEDS ORDERED: FURO40TA5 PO (08:57)
[2023-02-02] MEDS ORDERED: DAPA10TA PO (08:57)
[2023-02-02] MEDS ORDERED: FURO20TA4 PO (08:57)
[2023-02-02] MEDS ORDERED: ISOS30TA92 PO (08:57)
[2023-02-02] MEDS: SPIRONOLACTONE 25 MG TAB PO SCH (10:38)
[2023-02-02] MEDS: ISOSORBIDE MONO 30MG SR TAB PO SCH (10:38)
[2023-02-02] MEDS: CLOPIDOGREL 75MG TAB PO SCH (10:38)
[2023-02-02] MEDS: CARVEDILOL 6.25 MG TABLET PO SCH (10:39)
[2023-02-02] MEDS: GABAPENTIN 100 MG CAPSULE PO SCH (10:40)
[2023-02-02] MEDS: ATORVASTATIN 40 MG TABLET PO SCH (10:40)
[2023-02-02] MEDS: FUROSEMIDE 40 MG TABLET PO SCH (10:40)
[2023-02-02] MEDS: FAMOTIDINE 20MG TAB PO SCH (10:40)
[2023-02-02] MEDS: ENOXAPARIN SODIUM 40 MG/0.4 ML SYRINGE SQ SCH (10:41)
[2023-02-02] MEDS: ASPIRIN 81 MG EC TAB PO SCH (10:45)
[2023-02-02 11:00] VITALS: BP 100/68; PULSE 81; RESP 16
[2023-02-02] MEDS: ACETAMINOPHEN 325 MG TAB PO PRN (12:32)
== END 2023-02-02 16:00 | disposition home or self-care (01) | DRG 291 ==
LOC: EDH 14:43 → EDHIP 14:44 → 3DH 01-30 06:24
PROVIDERS: ADMIT Hospitalist; ATTEND Hospitalist
DX: I11.0 Hypertensive heart disease with heart failure (principal); I50.23 Acute on chronic systolic (congestive) heart failure; E46 Unspecified protein-calorie malnutrition; Z20.822 Contact with and (suspected) exposure to COVID-19; D64.9 Anemia, unspecified; D72.829 Elevated white blood cell count, unspecified; D75.839 Thrombocytosis, unspecified; E11.65 Type 2 diabetes mellitus with hyperglycemia; E11.42 Type 2 diabetes mellitus with diabetic polyneuropathy; I25.5 Ischemic cardiomyopathy; I25.10 Atherosclerotic heart disease of native coronary artery without angina pectoris; I25.2 Old myocardial infarction; E78.5 Hyperlipidemia, unspecified; Z82.49 Family history of ischemic heart disease and other diseases of the circulatory system; Z68.24 Body mass index [BMI] 24.0-24.9, adult; Z83.3 Family history of diabetes mellitus; Z95.1 Presence of aortocoronary bypass graft; Z95.5 Presence of coronary angioplasty implant and graft; Z79.84 Long term (current) use of oral hypoglycemic drugs
CPT/HCPCS: 36415; 71045; 74230; 80053; 80061; 81001; 82550; 82948; 83036; 83735; 83874; 83880; 84100; 84443; 84484; 84550; 85025; 85651; 87040; 87088; 87635; 87804; 87880; 92610; 92611; 93005; 93925; 93930; C9803; G0378; J0696; J1650; J1815; J1940; J3475